=== PATIENT | male | born 2000 | race Caucasian/White ===

== ENCOUNTER 2023-03-04 19:47 | Emergency (ER) | payer SELFPAY ==
[~2023-03-04] VITALS: Ht 184 cm; Wt 124.3 kg
[2023-03-04 19:55] VITALS: BP 166/107
--- NOTE | 2023-03-04 20:01 | ED GU-Male ---
General Chief Complaint: - Reproductive Stated Complaint: RIGHT TESTICLE PAIN Source: patient Exam Limitations: no limitations History of Present Illness Date Seen by Provider: Mar 04, 2023 Time Seen by Provider: 20:00 Initial Comments Patient is a 22-year-old male who presents to the emergency department today with a chief complaint of right testicle pain. Onset last evening. He states it hurts to walk and move. The pain comes in waves. He has taken some Tylenol without any relief of symptoms. He states that he is in a monogamous relationship only 1 sexual partner with his fiance. He has never had a sexually transmitted infection to his awareness. Denies dysuria, urgency or frequency. Denies penile discharge. He has had a little very low right sided abdominal discomfort. Normal bowel movements. No trauma. He is concerned for torsion. Timing/Duration: this morning (0930), other (wprse in the last hour) Severity/Quality: moderate, aching Location: scrotal Radiation: suprapubic (right sided) Activities at Onset: none Sexual [place] History: single partner Associated Symptoms: abdominal pain Allergies and Home Medications Allergies Coded Allergies: No Known Drug Allergies (Unverified , 03/04/23) Patient Home Medication List Home Medication List Reviewed: Yes No Active Prescriptions or Reported Meds Review of Systems Review of Systems Constitutional: see HPI Gastrointestinal: abdominal pain Musculoskeletal: no symptoms reported Skin: no symptoms reported Physical Exam Vital Signs Vital Signs - First Documented 03/04/23 19:55 Temp 37.3 Pulse 100 Resp 16 B/P (MAP) 166/107 (126) Pulse Ox 98 O2 Delivery Room Air Capillary Refill : Height, Weight, BMI Height: '" Weight: lbs. oz. kg; BMI Method: General Appearance: WD/WN, no apparent distress Cardiovascular: regular rate, rhythm Respiratory: lungs clear, normal breath sounds, no respiratory distress, no accessory muscle use Gastrointestinal: soft, tenderness (mild tenderness over the very low right abdomen) Genital/Rectal: normal genital exam (right testicle is slightly higher than the left. very tender posterior aspect of the testicle. no obvious swelling. no erythema) Extremities: normal range of motion, normal inspection Neurologic/Psychiatric: alert, normal mood/affect, oriented x 3 Skin: normal color, warm/dry Progress/Results/Core Measures Suspected Sepsis SIRS Temperature: Pulse: Respiratory Rate: Blood Pressure / Mean: Results/Orders Lab Results Laboratory Tests Test 03/04/23 20:48 Range/Units Urine Color DARK YELLOW Urine Clarity CLOUDY Urine pH 6.5 5-9 Urine Specific [place] 1.025 H 1.016-1.022 Urine Protein TRACE H NEGATIVE Urine Glucose (UA) NEGATIVE NEGATIVE Urine Ketones NEGATIVE NEGATIVE Urine Nitrite NEGATIVE NEGATIVE Urine Bilirubin NEGATIVE NEGATIVE Urine Urobilinogen 1.0 < = 1.0 MG/DL Urine Leukocyte Esterase NEGATIVE NEGATIVE Urine RBC (Auto) NEGATIVE NEGATIVE Urine RBC NONE /HPF Urine WBC 0-2 /HPF Urine Squamous Epithelial Cells RARE /HPF Urine Crystals NONE /LPF Urine Bacteria TRACE /HPF Urine Casts NONE /LPF Urine Mucus MODERATE H /LPF Urine Culture Indicated NO My Orders Orders - KARLY ESPINOZA MD Ua Culture If Indicated (03/04/23 20:02) Us Scrotum (Testicle) [id number] (03/04/23 20:08) Chlamydia Trachomatis Urine (03/04/23 21:25) Neis Jimenez Dna Urine Test (03/04/23 21:25) Levofloxacin Tablet (Levaquin Tablet) (03/04/23 21:30) Vital Signs/I&O 03/04/23 19:55 Temp 37.3 Pulse 100 Resp 16 B/P (MAP) 166/107 (126) Pulse Ox 98 O2 Delivery Room Air Capillary Refill : Progress Note : Time: 21:32 Progress Note Patient seen and evaluated by me. Evaluation today includes physical exam, urinalysis, urine culture for Gonorrhea and chlamydia, scrotal ultrasound. Pertinent physical exam findings well-developed well-nourished male in no acute distress. Mild tenderness to the right suprapubic area. He has exquisite t enderness to the right testicle it is in a slightly elevated lie. No masses palpable. No overlying erythema. Slightly edematous. No right-sided inguinal lymphadenopathy is appreciable. No skin wounds noted. No penile discharge noted. Left testicle is normal. Differential diagnosis based on history and physical exam intermittent torsion, epididymitis. Labs independently reviewed and interpreted by me. His urinalysis is normal. Urine culture for gonorrhea and chlamydia are pending. Radiologist read on the ultrasound is epididymoorchitis on the right. No evidence of torsion, good blood flow. I have discussed findings and plan of care with the patient. He is insistent that he is at low risk for sexually transmitted infection. I have recommended tight supportive underwear. Antibiotics for 10 days, Levaquin. I have advised them that cultures are pending. We will contact him if he needs further treatment. Ibuprofen for pain. Patient is given return precautions and both verbal and written format. He verbalized understanding of the plan of care, all questions are sought and answered. Departure Impression Primary Impression: Epididymo-orchitis, acute Disposition: HOME, SELF-CARE Condition: Improved Departure-Patient Inst. Decision time for Depature: 21:35 Referrals: [facility] [place]LOCAL PHYSICIAN (PCP) Primary Care Physician Patient Instructions: Epididymitis (DC) Add. Discharge Instructions: Please take the antibiotics as directed once a day for a total of 10 days. You have been given your first dose of antibiotics here in the emergency department this evening. You can take [id number] ibuprofen 3 tablets which is 600 mg every 6 hours with food as needed for pain. Supportive underwear will help with discomfort. If you develop a fever, vomiting or worsening pain please return to the emergency department for reevaluation. If your cultures come back positive for additional bacteria we will contact you and change your antibiotics. Scripts Levofloxacin (Levofloxacin) 500 Mg Tablet 500 MG PO DAILY, #9 TAB Prov: KARLY ESPINOZA MD 03/04/23 KARLY ESPINOZA MD Mar 04, 2023 20:01
[2023-03-04 20:54] LABS: BILIRUBIN,URINE NEGATIVE (NEGATIVE); CLARITY,URINE CLOUDY; COLOR,URINE DARK YELLOW; GLUCOSE, URINE (UA) NEGATIVE (NEGATIVE); KETONES,URINE NEGATIVE (NEGATIVE); LEUKOCYTE ESTERASE ,URINE NEGATIVE (NEGATIVE); NITRITE,URINE NEGATIVE (NEGATIVE); PH,URINE 6.5 (5-9); PROTEIN,URINE TRACE (NEGATIVE)
[2023-03-04 21:15] LABS: BACTERIA,URINE TRACE /HPF; SQUAMOUS EPITHELIAL CELL,UR RARE /HPF; WBC,URINE 0-2 /HPF
--- NOTE | 2023-03-04 21:26 | Diagnostic Imaging Report ---
INDICATION: Right testicle pain. TECHNIQUE: Real-time grayscale sonographic imaging and color vascular evaluation of the scrotum. CORRELATION STUDY: None FINDINGS: RIGHT TESTICLE: 4.6 x 2.4 x 3.0 cm. LEFT TESTICLE: 4.3 x 2.3 x 3.1 cm. There is somewhat of a heterogeneous echotexture of the right testicle compared to the left. Additionally, there is increased vascularity. There is also increased vascularity within the right epididymis. Right epididymal cyst 0.5 cm. Blood flow within the left testicle. Left epididymis unremarkable. IMPRESSION: Findings suggesting right-sided epididymal orchitis. Dictated by: Dictated on workstation # [id number]
[2023-03-04] MEDS ORDERED: LEVO-55 PO (21:36)
== END 2023-03-04 21:40 | disposition home or self-care (01) ==
LOC: ER 19:51
DX: N45.3 Epididymo-orchitis (principal)
CPT/HCPCS: 36415; 76870; 81000; 87491; 87591